=== PATIENT | male | born 1960 | race Caucasian/White ===

== ENCOUNTER → 2018-06-09 | Outpatient (CLI) | payer BC, SELFPAY ==
--- NOTE | 2018-06-09 08:00 | RAD_ITS ---
PROCEDURE: Fluoroscopic guided Hip Injection DATE: June 09, 2018. INDICATION: Male, 58 years old. Right hip pain. PHYSICIAN: Yasir Zmimer M.D. MEDICATIONS: 80 mg of Kenalog and 3 cc of 0.5% Marcaine. 2% lidocaine administered subcutaneously for local anesthesia. ACCESS SITE: Right hip. NEEDLE: 22-gauge spinal needle. FLUOROSCOPY TIME (if supplied): (0:32) minutes/seconds FINDINGS: The risks, benefits, and alternatives to the procedure were explained to the patient. The specific risks of bleeding, infection, and neurovascular injury were detailed and accepted. Witnessed informed consent was obtained. A 22-gauge spinal needle was positioned under radiographic fluoroscopic localization. Approximately 2 cc of Isovue-300 instilled for localization purposes. Medication was then injected. The patient tolerated the procedure well without any immediate complications. The patient was placed supine with head elevated and returned to the floor in stable condition. RAD/Inj/Asp Ryan Jt Should/Hip/Knee IMPRESSION: 1. Successful fluoroscopic guided hip injection. Electronically Signed: Yasir Zimmer, at 9:33 EDT , Service support ,
== END | disposition home or self-care (01) ==
LOC: RAD 08:18
PROVIDERS: Family Provider Family Medicine; PCP Family Medicine; Referring Provider Orthopaedic Surgery; Visit Provider Orthopaedic Surgery
DX: M25.551 Pain in right hip (principal); M16.11 Unilateral primary osteoarthritis, right hip
CPT/HCPCS: 20610; 77002; Q9967

== ENCOUNTER → 2018-10-28 | Outpatient (CLI) | payer BC, SELFPAY ==
--- NOTE | 2018-10-28 07:00 | RAD_ITS ---
PROCEDURE: Fluoroscopic guided Hip Injection DATE: October 28, 2018. INDICATION: Male, 58 years old. Right hip pain. PHYSICIAN: Yasir Zimmer M.D. MEDICATIONS: 80 mg of Kenalog and 3 cc of 1% lidocaine. 2% lidocaine administered subcutaneously for local anesthesia. ACCESS SITE: Right hip. NEEDLE: 22-gauge spinal needle. FLUOROSCOPY TIME (if supplied): (0:49) minutes/seconds FINDINGS: The risks, benefits, and alternatives to the procedure were explained to the patient. The specific risks of bleeding, infection, and neurovascular injury were detailed and accepted. Witnessed informed consent was obtained. A 22-gauge spinal needle was positioned under radiographic fluoroscopic localization. Approximately 2 cc of Isovue-300 instilled for localization purposes. Medication was then injected. The patient tolerated the procedure well without any immediate complications. RAD/Inj/Asp Ryan Jt Should/Hip/Knee IMPRESSION: 1. Successful fluoroscopic guided hip injection. Electronically Signed: Yasir Zimmer, at 10:17 EDT , Service support ,
== END | disposition home or self-care (01) ==
LOC: RAD 08:03
PROVIDERS: Family Provider Family Medicine; PCP Family Medicine; Referring Provider Orthopaedic Surgery; Visit Provider Orthopaedic Surgery
DX: M25.551 Pain in right hip (principal)
CPT/HCPCS: 20610; 77002; Q9967

== ENCOUNTER → 2021-08-16 | Outpatient (CLI) | payer BC, SELFPAY ==
--- NOTE | 2021-08-16 08:05 | RAD_ITS ---
PROCEDURE: Fluoroscopic guided Hip Injection DATE: 08/16/2021. INDICATION: Male, 61 years old. Left hip pain. PHYSICIAN: Yasir Zimmer M.D. MEDICATIONS: 80 mg of KENALOG and 3 cc of 0.5% MARCAINE. 2% LIDOCAINE administered subcutaneously for local anesthesia. ACCESS SITE: Left hip. NEEDLE: 22-gauge spinal needle. FLUOROSCOPY TIME (if supplied): (0:36) minutes/seconds. One image was submitted. FINDINGS: The risks, benefits, and alternatives to the procedure were explained to the patient. The specific risks of bleeding, infection, and neurovascular injury were detailed and accepted. Witnessed informed consent was obtained. A 22-gauge spinal needle was positioned under radiographic fluoroscopic localization. Approximately 2 cc of ISOVUE-300 instilled for localization purposes. Medication was then injected. The patient tolerated the procedure well without any immediate complications. RAD/Inj/Asp Ryan Jt Should/Hip/Knee IMPRESSION: 1. Successful fluoroscopic guided hip injection. Electronically Signed: Yasir Zimmer MD at 9:28 EDT ,
[2021-08-16] MEDS: Lidocaine 2% (5ml sdv) 5 ML VIAL.MPF (08:25)
[2021-08-16] MEDS: Bupivacaine Mpf 0.5% 30 ML VIAL INTRAARTIC (08:30)
[2021-08-16] MEDS: Triamcinolone Acetonide 40 MG/ML Vial 80 MG INTRAARTIC (08:30)
== END | disposition home or self-care (01) ==
PROVIDERS: PCP Family Medicine; Referring Provider Orthopaedic Surgery; Visit Provider Orthopaedic Surgery
DX: M16.12 Unilateral primary osteoarthritis, left hip (principal); M25.552 Pain in left hip; G89.29 Other chronic pain
CPT/HCPCS: 20610; 77002; Q9965